=== PATIENT | female | born 1975 | race Caucasian/White ===

== ENCOUNTER → 2017-03-03 | Outpatient (CLI) | payer BC ==
--- NOTE | 2017-03-06 08:00 | DIAGNOSTIC IMAGING REPORT ---
SINUS CT CT DOSE: 550.86 mGy.cm HISTORY: H93.19 BnmcykdmV88.89 Facial [id number] TECHNIQUE: Multiaxial CT images of the paranasal sinuses were performed and reformatted in the coronal plane without the use of contrast. A dose lowering technique was utilized adhering to the principles of ALARA. COMPARISON: None. FINDINGS: The frontal sinuses, ethmoid air cells, sphenoid sinuses, and bilateral maxillary antra are clear. Of note, the left frontal sinus is not pneumatized. Small left-sided wayne bullosa. The mastoid air cells are clear. The bilateral ostiomeatal units are patent. The nasal septum is midline. The orbits are unremarkable. IMPRESSION: The paranasal sinuses and mastoid air cells are clear. Electronically signed by: Gurdeep Rome M.D. 03/03/2017 4:30 PM Dictated Date/Time: 03/03/2017 4:23 PM
== END | disposition home or self-care (01) ==
LOC: C.CTS 14:32
PROVIDERS: ATTEND Family Medicine
DX: H93.19 Tinnitus, unspecified ear (principal); R68.89 Other general symptoms and signs

== ENCOUNTER → 2017-08-04 | Outpatient (CLI) | payer BC ==
[2017-08-04 16:57] LABS: BASO % 0.6 %; BASO ABS # 0.05 K/uL (0-0.2); EOS % 6.1 %; HEMATOCRIT 38.4 % (37-47); IG# 0.03 K/uL (0.00-0.02); LYMPH % 24.1 %; LYMPH ABS # 1.97 K/uL (1.2-3.4); MEAN CORPUSCULAR HEMOGLOBIN 31.5 pg (25-34); MEAN CORPUSCULAR HGB CONC 33.9 g/dl (32-36); MEAN PLATELET VOLUME 11.1 fL (7.4-10.4); MONO % 5.7 %; MONO ABS # 0.47 K/uL (0.11-0.59); NEUT % 63.1 %; NEUT ABS # 5.16 K/uL (1.4-6.5); PLATELET COUNT 280 K/uL (130-400); RED CELL DISTRIBUTION WIDTH CV 14.1 % (11.5-14.5); RED CELL DISTRIBUTION WIDTH SD 48.6 fL (36.4-46.3); WHITE BLOOD COUNT 8.18 K/uL (4.8-10.8)
[2017-08-04 17:11] LABS: BLOOD UREA NITROGEN 16 mg/dl (7-18); CALCIUM 8.6 mg/dl (8.5-10.1); CARBON DIOXIDE 28 mmol/L (21-32); GLUCOSE 86 mg/dl (70-99); POTASSIUM 3.4 mmol/L (3.5-5.1); SODIUM 136 mmol/L (136-145)
[2017-08-08 05:28] LABS: ANTI-SS-A <1.0 NEG AI (<1.0 NEG); ANTI-SS-B <1.0 NEG AI (<1.0 NEG); ANTI-dsDNA RECOMBINANT 255X <1 IU/ML
== END | disposition home or self-care (01) ==
LOC: C.LABPBG 12:02
PROVIDERS: ATTEND Family Medicine
DX: R20.2 Paresthesia of skin (principal); R09.89 Other specified symptoms and signs involving the circulatory and respiratory systems; R51 Headache